=== PATIENT | female | born 1950 | race Caucasian/White ===

== ENCOUNTER 2016-07-24 12:38 | Emergency (ER) | payer BC, MEDICARE ==
[2016-07-24 14:56] VITALS: BP 116/99
--- NOTE | 2016-07-24 15:11 | UC ---
Upper Extremity HPI - HPI Summary HPI Summary: NICKOLAS this morning while out on the sidewalk, landed on L side. Has swelling and pain in L wrist and forearm. - History of Current Complaint Chief Complaint: UCUpperExtremity Stated Complaint: WRIST INJURY Time Seen by Provider: 07/24/16 14:57 Hx Obtained From: Patient ?: No Onset/Duration: Sudden Onset Severity Initially: Moderate Severity Currently: Moderate Location Of Pain: Is Discrete @ Character: Aching, Spasmodic Aggravating Factor(s): Movement, Flexion, Extension Alleviating Factor(s): Ice, Rest Associated Signs And Symptoms: Positive: Swelling - Allergies/Home Medications Allergies/Adverse Reactions: Allergies Allergy/AdvReac Type Severity Reaction Status Date / Time Erythromycin Allergy Intermediate Hives Verified 04/25/15 12:01 Penicillins Allergy Intermediate Hives Verified 04/25/15 12:01 Minocycline [From Minocin] Allergy Unknown Unknown Verified 04/25/15 12:01 Reaction Details Eclectic Trees AdvReac Intermediate Runny Uncoded 04/25/15 12:01 nose; watery eyes PMH/Surg Hx/FS Hx/Imm Hx - Additional Past Medical History Additional PMH: osteoporosis Cardiovascular History Of: Reports: Cardiac Disorders - A-Fib, leakey valve Respiratory History Of: Reports: Bronchitis Cancer History Of: Denies: Breast Cancer - Surgical History Surgical History: None Surgery Procedure, Year, and Place: 2002 - [facility] - uvulopalatopharyngoplasty; Wart removed from hand - Family History Known Family History: Positive: Hypertension - Social History Occupation: Retired Alcohol Use: None Substance Use Type: None Smoking Status (MU): Never Smoked Tobacco Review of Systems Constitutional: Negative Skin: Negative Eyes: Negative ENT: Negative Respiratory: Negative Cardiovascular: Negative Gastrointestinal: Negative Genitourinary: Negative Motor: Negative Neurovascular: Negative Musculoskeletal: Arthralgia, Decreased ROM Neurological: Negative Psychological: Negative All Other Systems Reviewed And Are Negative: Yes Physical Exam Triage Information Reviewed: Yes Appearance: Well-Appearing, Well-Nourished Vital Signs: Initial Vital Signs Pulse 63 07/24/16 14:50 Resp 16 07/24/16 14:50 BP 116/99 07/24/16 14:50 Pulse Ox 100 07/24/16 14:50 Vital Signs Reviewed: Yes Eye Exam: Normal Eyes: Positive: Conjunctiva Clear ENT Exam: Normal ENT: Positive: Normal ENT inspection, Hearing grossly normal, Pharynx normal, TMs normal Dental Exam: Normal Neck exam: Normal Neck: Positive: Supple, Nontender, No Lymphadenopathy Respiratory Exam: Normal Respiratory: Positive: Chest non-tender, Lungs clear, Normal breath sounds, No respiratory distress, No accessory muscle use Cardiovascular Exam: Normal Cardiovascular: Positive: RRR, No Murmur Musculoskeletal Exam: Other - Diffuse wrist tenderness Musculoskeletal: Positive: 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 L ulnar styloid fracture closed, nondisplaced Discharge - Discharge Plan Condition: Stable Disposition: HOME Patient Education Materials: Wrist Fracture in Adults (ED) Referrals: Jorge A Partida MD [Primary Care Provider] - 2 Weeks Adis Jeong MD [Medical Doctor] - Additional Instructions: Keep the wrist elevated as much as possible and follow up with the orthopedist next week.
--- NOTE | 2016-07-24 16:10 | RAD ---
INDICATION: FOOSH COMPARISON: None. TECHNIQUE: 3 views left wrist. REPORT: There is a minimally displaced fracture involving the distal left radius with appearance of a small degree of impaction. The left ulnar styloid is fractured and displaced slightly toward the midline. The remaining visualized bones appear to be intact. IMPRESSION: Minimally displaced impacted fracture of the left distal radius as well as ulnar styloid fracture as described above.
== END 2016-07-24 15:51 | disposition home or self-care (01) ==
LOC: UCEAST 12:38
DX: S52.592A Other fractures of lower end of left radius, initial encounter for closed fracture (principal); S52.615A Nondisplaced fracture of left ulna styloid process, initial encounter for closed fracture; W18.30XA Fall on same level, unspecified, initial encounter; I48.91 Unspecified atrial fibrillation; J40 Bronchitis, not specified as acute or chronic; Z88.3 Allergy status to other anti-infective agents; Z88.0 Allergy status to penicillin
CPT/HCPCS: 99211; G0463